=== PATIENT | male | born 2000 | race Caucasian/White ===

== ENCOUNTER 2023-02-02 11:31 | Emergency (ER) | payer OTHER ==
[~2023-02-02] VITALS: Ht 188 cm; Wt 64.4 kg
[2023-02-02 11:31] VITALS: BP 125/76; TEMP 98.2; O2SAT 99
[2023-02-02] MEDS ORDERED: CEPH25SS PO (11:41)
== END 2023-02-02 15:04 | disposition home or self-care (01) ==
LOC: M ED 11:31
DX: L03.213 Periorbital cellulitis (principal)

== ENCOUNTER → 2024-09-07 | Outpatient (REF) | payer OTHER ==
[~2024-09-07] MED LIST: CEPH25SS PO
== END ==
LOC: M LAB REF 19:27
PROVIDERS: ATTEND Physician Assistant
DX: R30.0 Dysuria (principal)